=== PATIENT | female | born 1965 | race Two or more races ===

== ENCOUNTER 2019-10-27 14:19 | Emergency (ER) | payer SELFPAY ==
[~2019-10-27] VITALS: Ht 142.2 cm; Wt 61.0 kg
[2019-10-27 17:55] VITALS: BP 155/69
== END 2019-10-27 17:56 | disposition home or self-care (01) ==
LOC: ER 14:19
DX: B34.9 Viral infection, unspecified (principal)
CPT/HCPCS: 99281